=== PATIENT | male | born 1960 | race African-American/Black ===

== ENCOUNTER 2022-01-04 18:16 | Emergency (ER) | payer MEDICAID ==
[~2022-01-04] VITALS: Ht 177.8 cm; Wt 80.0 kg
[2022-01-04 18:19] VITALS: BP 126/76
[2022-01-04] MEDS ORDERED: BACITRACIN ZINC OINT UDPKT TOP ONE (22:30)
[2022-01-04] MEDS ORDERED: TETANUS, DIPHTHERIA, PERTUSSIS VAC/PF 0.5ML (>10YR OLD) IM ONE (22:30)
== END 2022-01-04 23:04 | disposition home or self-care (01) ==
LOC: ER 18:16
DX: S01.01XA Laceration without foreign body of scalp, initial encounter (principal); W18.39XA Other fall on same level, initial encounter; Y93.89 Activity, other specified; Y92.89 Other specified places as the place of occurrence of the external cause; Y99.8 Other external cause status
CPT/HCPCS: 90471; 90715; 99284

== ENCOUNTER 2022-03-26 17:10 | Emergency (ER) | payer MEDICAID, OTHER ==
[~2022-03-26] VITALS: Ht 182.9 cm; Wt 70.0 kg
[2022-03-26 17:20] VITALS: BP 132/70
== END 2022-03-26 23:33 | disposition left against medical advice (07) ==
LOC: ER 17:10
DX: Z53.21 Procedure and treatment not carried out due to patient leaving prior to being seen by health care provider (principal)